=== PATIENT | female | born 1945 | race Caucasian/White ===

== ENCOUNTER 2023-07-03 06:28 | Day surgery (SDC) | payer SELFPAY ==
[2023-06-23 16:43] VITALS: BMI 23.6
[2023-07-03] MEDS ORDERED: LIDOCAINE HCL 1%, 10 MG/ML (20ML VIAL) ONE (07:18)
[2023-07-03] MEDS ORDERED: TRANEXAMIC ACID 1000 MG/10 ML VIAL ONE (07:18)
[2023-07-03] MEDS ORDERED: MIDAZOLAM HCL 2 MG/2 ML SINGLE DOSE VIAL ONE (07:22)
[2023-07-03] MEDS ORDERED: PROPOFOL 160 ML ONE (07:23)
[2023-07-03] MEDS ORDERED: SUCCINYLCHOLINE CHLORIDE 200 MG/10 ML SYRINGE ONE (07:24)
[2023-07-03] MEDS ORDERED: ROCURONIUM BROMIDE 50 MG/5 ML SYRINGE ONE (07:24)
[2023-07-03] MEDS ORDERED: ePHEDrine SULFATE 50 MG/1 ML AMPULE ONE (07:24)
[2023-07-03] MEDS ORDERED: POVIDONE-IODINE 5% OPHTHALMIC PREP 30 ML SOLUTION ONE (07:27)
[2023-07-03] MEDS ORDERED: DEXMEDETOMIDINE HCL 200 MCG/2 ML IVPB ONE (07:59)
[2023-07-03] MEDS ORDERED: LIDOCAINE 1%/EPI 1:100000 (20 ML MULTI DOSE VIAL) ONE (11:35)
[2023-07-03] MEDS ORDERED: DEXAMETHASONE SOD PHOSPHATE 4 MG/1 ML VIAL ONE (12:44)
[2023-07-03] MEDS ORDERED: ceFAZolin SODIUM 1 GM VIAL ONE (12:44)
[2023-07-03] MEDS ORDERED: ONDANSETRON 4 MG/2 ML VIAL ONE (12:44)
[2023-07-03] MEDS ORDERED: PROPOFOL 20 ML ONE ×2 (12:46→15:56)
[2023-07-03] MEDS ORDERED: NITROGLYCERIN 2% OINTMENT - 1GM PACKET TD ONE ×2 (15:02→16:02)
[2023-07-03] MEDS ORDERED: BACITRACIN ZINC 15 GM TUBE TOPICAL OINTMENT ONE (16:02)
[2023-07-03] MEDS ORDERED: LABETALOL HCL 5 MG/1 ML (100MG/20 ML VIAL) ONE (16:03)
[2023-07-03] MEDS ORDERED: BSS (NA/CA/MG/K) BALANCED SALT SOLUTION OPHTH SOLN 15 ML BOTTLE ONE (16:10)
[2023-07-03] MEDS ORDERED: ONDANSETRON 4 MG/2 ML VIAL IVPUSH PRN (16:52)
[2023-07-03] MEDS: ACETAMINOPHEN 1000 MG/100 ML BAG IVPB ONE (17:00)
[2023-07-03] MEDS ORDERED: oxyCODONE HCL 5 MG TABLET PO PRN (17:30)
[2023-07-03] MEDS ORDERED: ONDANSETRON 4 MG/2 ML VIAL IVPB PRN (17:30)
[2023-07-03] MEDS ORDERED: LABETALOL HCL 5 MG/1 ML (100MG/20 ML VIAL) IVPUSH PRN (17:30)
[2023-07-03] MEDS: ceFAZolin SODIUM 1 GM VIAL ONE (18:00)
[2023-07-03] MEDS: LACTATED RINGERS SOLUTION 1,000 ML IV SCH ×2 (18:00→18:55)
[2023-07-03] MEDS: CEFAZOLIN 1 GM in DEXTROSE 5%-WATER - 50 ML IVPB SCH (18:55)
[2023-07-03] MEDS: ROSUVASTATIN CA 5 MG TABLET PO SCH (21:31)
[2023-07-03] MEDS: amLODIPine BESYLATE 5 MG TABLET (FP) PO SCH (21:32)
[2023-07-04 04:47] VITALS: RESP 16; TEMP 98.1
[2023-07-04] MEDS: ACETAMINOPHEN 500 MG TABLET (FP) PO PRN (04:58)
[2023-07-04 08:34] VITALS: BP 110/46; PULSE 70
[2023-07-04] MEDS: valACYclovir HCL 500 MG TABLET (FP) PO SCH (09:03)
[2023-07-04] MEDS: LOSARTAN POTASSIUM 50 MG TABLET PO SCH (09:39)
[2023-07-04] MEDS ORDERED: PATIENT'S OWN MEDICATION (NON-FORMULARY) (Olmesartan Medoxomil 40 MG Tablet) PO SCH (10:00)
== END 2023-07-04 13:36 | disposition home or self-care (01) ==
LOC: FASU 06:28 → FM/S 18:04 → FASU 07-04 13:36
PROVIDERS: ATTEND Plastic Surgery
PROC: 080Q0ZZ Alteration of Right Lower Eyelid, Open Approach (ICD-10-PCS; 2023-07-03)
PROC: 0W020ZZ Alteration of Face, Open Approach (ICD-10-PCS; principal; 2023-07-03 08:56)
PROC: 080R0ZZ Alteration of Left Lower Eyelid, Open Approach (ICD-10-PCS; 2023-07-03 08:56)
DX: L98.8 Other specified disorders of the skin and subcutaneous tissue (principal); H02.89 Other specified disorders of eyelid
CPT/HCPCS: 94760; J0131